=== PATIENT | female | born 1950 | race Caucasian/White ===

== ENCOUNTER → 2017-06-12 | Outpatient (CLI) | payer MEDICARE, OTHER ==
[~2017-06-12] MED LIST: AMIT25TA9 PO; ASPI1TAB57 PO; BIOT10TA PO; CALC600T4 PO; CBD OIL SL; CHOL400T17 PO; DIAZ5 PO; DICL1PAT TOPICAL; GLUCTAB6 PO; HYDR-3583 PO; MAGN400T24 PO; MULT1TAB61 PO; POTA99TA4 PO; POTASSIUM 99 MG PO; TIZA2CAP3 PO; TOPA50TA7 PO; [UNRECOGNIZED DRUG - CODE]; [UNRECOGNIZED DRUG - CODE] PO; [UNRECOGNIZED DRUG - OTHER] PO
[2017-06-12 14:33] LABS: BILIRUBIN, URINE NEG (NEG); BLOOD, URINE TRACE (NEG); GLUCOSE,URINE NEG (NEG); KETONE, URINE NEG (NEG); NITRITE,URINE NEG (NEG); URINE LEUKOCYTE ESTERASE NEG (NEG)
[2017-06-12 14:44] LABS: URINE COLOR YELLOW (YELLW/STRAW)
[2017-06-12 14:46] LABS: MUCUS URINE RARE /lpf (OCC); SQUAMOUS EPITHELIAL CELL URINE 0-2 /hpf (0-5); WBC, URINE 0-2 /hpf (0-5)
--- NOTE | 2017-06-13 12:35 | EKG ---
Date Performed: 06/12/2017 Time Performed: 13:47:40 PTAGE: 66 years EKG: Sinus rhythm NONSPECIFIC ST & T-WAVE ABNORMALITY BORDERLINE ECG PREVIOUS TRACING : 08/05/2008 17.23 DOCTOR: Fredrick Dsouza Interpretating Date/Time 06/13/2017 12:33:55
== END ==
LOC: PHPRE 12:43
PROVIDERS: ATTEND Pain Medicine Interventional Pain Medicine
DX: Z01.812 Encounter for preprocedural laboratory examination (principal); Z01.810 Encounter for preprocedural cardiovascular examination; R94.31 Abnormal electrocardiogram [ECG] [EKG]
CPT/HCPCS: 81001; 93005

== ENCOUNTER → 2017-06-18 | Day surgery (SDC) | payer MEDICARE, OTHER ==
[~2017-06-18] VITALS: Ht 157.5 cm; Wt 57.0 kg
[~2017-06-18] MED LIST changes: +*Lactated Ringer's INJ 1,000 ML ONE; +*MEPERIDINE 25 MG INJ VIAL PERIprocedural Use ONLY ONE; +BUPIVACAINE/EPINEPHRINE 0.25% PF 30 ML VIAL ONE; -CALC600T4 PO; +CHLORHEXIDINE GLUCONATE 2 % 1 PACK (2 CLOTHS) TOPICAL PRN; +FAMOTIDINE 20 MG/2 ML VIAL ONE; +LACTATED RINGER'S 1000 ML IV PRN; +LIDOCAINE HCL 1% PF 5 ML SYRINGE OTHER ONE; +MEPERIDINE HCL 50 MG/ML VIAL ONE; +METOPROLOL TARTRATE 25 MG TAB PO PRN; +MIDAZOLAM HCL 2 MG/2 ML VIAL ONE; +MINERAL OIL 10 ML VIAL ONE; +MORPHINE SULFATE 8 MG/ML INJ ONE; +ONDANSETRON HCL 4 MG/2 ML VIAL IV PUSH ONE; +POVIDONE IODINE 5% (ANTISEPSIS KIT) 4 APPLICATIONS EACH NARE PRN; +PROPOFOL 200 MG/20 ML AMP IV ONE; +SODIUM CHLORID 0.9% 500 ML IV PRN; +VANCOMYCIN 500 MG/NS 100 ML IV SCH; +ceFAZolin 1,000 MG/NS 100 ML IV SCH
[2017-06-18 13:42] VITALS: PULSE 70
[2017-06-18 15:35] VITALS: BP 117/72; PULSE 69; RESP 16; TEMP 98.2; O2SAT 94
--- NOTE | 2017-06-19 06:22 | MP ---
cc: ROMAIN HEATON M.D. DATE OF SURGERY 06/18/2017 DATE OF 1950 PROCEDURE 1. Replacement of implanted pulse generator. 2. Replacement of the distal extension wire from stimulating leads to the an implanted pulse generator. 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 PROCEDURE NOTE IV was started in the holding area. The patient was given IV antibiotics. Consent forms were signed. Surgical site was marked. The patient was taken to the operating room, given general anesthesia and placed in the supine position. The skin was prepped with Chloraprep and draped with sterile drapes. An incision was made over the pulse generator and it was exteriorized using blunt and sharp dissection. Then the extension leads were disconnected from the existing pulse generator by loosening Isacc screws and it was obvious that one of the leads had corroded. Impedance was checked and found to be out of range and it was determined that the distal extension wire needed to be replaced in addition to the pulse generator. So the patient was placed in the right lateral decubitus position. Her abdomen and flank again were prepped with Chloraprep and draped with sterile drapes. Blunt and sharp dissection were used to exteriorize the connection between the stimulating lead and the pulse generator in the patient's left flank. The distal extension wires then were disconnected from the stimulating leads and discarded. Then a tunneling device was used to tunnel a new distal extension wire from the left flank to the left subcostal incision. This extension wire then was connected to the stimulating leads and the pulse generator by tightening Isacc screws. Impedance was checked at the bedside found to be appropriate in all electrodes except two electrodes. The distal extension connection to the stimulating leads was covered with a Silastic cover and secured at both ends with 2-0 Ethibond suture. Then 2-0 Ethibond sutures were placed in the pulse generator to hold it in place with the letter side facing the skin. Impedance was checked at the bedside found to be appropriate throughout the entire system except for two electrodes. Then each incision was irrigated with Betadine and closed using 3-0 Monocryl on the subcuticular tissue and 3-0 nylon on the skin. The incisions were covered with sterile adhesive dressings and the patient was taken to the recovery room with stable vital signs, neurologically intact. W. MD ANAI Barraza/VICKI /1:21 PM /6:02
== END | disposition home or self-care (01) ==
LOC: PHSDC 09:03
PROVIDERS: ATTEND Pain Medicine Interventional Pain Medicine
DX: M96.1 Postlaminectomy syndrome, not elsewhere classified (principal); Z98.1 Arthrodesis status
CPT/HCPCS: 00300; 63685; C1767; J0690; J2175; J2250; J2270; J3370; J7120; J2405